=== PATIENT | male | born 1935 | race Caucasian/White ===

== ENCOUNTER → 2016-04-06 12:27 | Outpatient (CLI) | payer MEDICARE ==
[2013-11-29 14:14] VITALS: BMI 35.6
[~2016-04-06 12:27] MED LIST: ACETAMINOPHEN500 M1 PO; ALEVE220 MG PO; ASPIRIN EC325 M1 PO; BETAPACE 80 MG80 MG PO; BILBERRY PO; BILBERRY100 MG; DYAZIDE 37.5/251 CAP PO; EZFE 200200 MG; FERROUS SULFAT325 MG PO; FISH OIL 1,0001 CA1 PO; FISH OIL PO; GALZIN50 MG PO; K-DUR20 MEQ PO; LASIX20 MG PO; LISINOPRIL-HCTZ1 T13 PO; LUTEIN/ZEAXANTHIN PO; MAG-OXIDE400 MG PO; MUCINEX600 MG PO; NAPROSYN250 MG; NIACIN100 MG; NYSTATIN ORAL SU5 ML PO; OMNICEF300 MG PO; PENTOXIFYLLINE400 MG PO; PLAVIX75 MG PO; POTASSIUM99 M1 PO; PRAVACHOL40 MG PO; TRENTAL400 MG PO; ULTRACET TABLET1 TAB PO; ZYLOPRIM100 MG PO
== END | disposition home or self-care (01) ==
LOC: D.US 12:27
DX: I65.23 Occlusion and stenosis of bilateral carotid arteries (principal)